=== PATIENT | female | born 1955 | race Two or more races ===

== ENCOUNTER 2022-05-15 11:30 | Emergency (ER) | payer OTHER ==
[~2022-05-15] VITALS: Ht 160 cm; Wt 63.6 kg
[2022-05-15] MEDS ORDERED: LABETALOL HCL 5 MG/ML 4ML SYRINGE IV ONE (11:45)
[2022-05-15] MEDS ORDERED: METOPROLOL TARTRATE 25 MG TAB PO ONE (12:00)
[2022-05-15 12:05] LABS: Basophils # (auto) 0.1 10 ^3/uL (0-0.2); Basophils % (auto) 0.8 % (0.0-2.0); Eosinophils # (auto) 0.1 10 ^3/uL (0-0.8); Eosinophils % (auto) 1.1 % (0.0-7.0); Hematocrit 44.3 % (36.0-46.0); Hemoglobin 15.3 g/dL (12.2-16.2); Lymphocytes # (auto) 1.5 10 ^3/uL (0.4-5.4); Lymphocytes % (auto) 15.3 % (10.0-50.0); Mean Corpuscular Hemoglobin 30.4 pg (28.0-32.0); Mean Corpuscular Hgb Conc. 34.5 g/dL (32.0-36.0); Monocytes # (auto) 0.6 10 ^3/uL (0-1.3); Monocytes % (auto) 6.4 % (0.0-12.0); Neutrophils # (auto) 7.4 10 ^3/uL (1.6-8.6); Neutrophils % (auto) 76.4 % (37.0-80.0); Nucleated Red Blood Cells % 0.7 %; Red Blood Cells 5.03 10^6/uL (4.0-5.20); Red Cell Distribution Width 12.8 % (11.8-14.3); White Blood Cell 9.7 10^3/uL (4.4-10.8)
[2022-05-15 12:24] LABS: Albumin 4.1 g/dL (3.4-5.0); Calcium 9.1 mg/dL (8.5-10.1)
[2022-05-15 12:28] LABS: BUN/Creatinine Ratio 10.7; Bilirubin, Total 0.6 mg/dL (0.2-1.0); Total Protein 7.2 g/dL (6.4-8.2)
[2022-05-15 23:18] VITALS: BP 173/59
== END 2022-05-15 23:26 | disposition home or self-care (01) ==
LOC: ER 11:30 → EDBD 11:30 → ER 23:25
DX: I16.9 Hypertensive crisis, unspecified (principal); I10 Essential (primary) hypertension
CPT/HCPCS: 36415; 70450; 71045; 80053; 84484; 85025; 96374; 99284; J3490

== ENCOUNTER 2022-05-18 17:18 | Emergency (ER) | payer OTHER ==
[~2022-05-18] VITALS: Ht 154.9 cm; Wt 70.0 kg
[2022-05-18] MEDS ORDERED: LABETALOL HCL 5 MG/ML 4ML SYRINGE IV ONE (18:00)
[2022-05-18 18:40] LABS: Basophils # (auto) 0.1 10 ^3/uL (0-0.2); Basophils % (auto) 0.5 % (0.0-2.0); Eosinophils # (auto) 0.1 10 ^3/uL (0-0.8); Eosinophils % (auto) 1.5 % (0.0-7.0); Hematocrit 43.7 % (36.0-46.0); Hemoglobin 15.3 g/dL (12.2-16.2); Lymphocytes # (auto) 1.7 10 ^3/uL (0.4-5.4); Lymphocytes % (auto) 17.4 % (10.0-50.0); Mean Corpuscular Hgb Conc. 34.9 g/dL (32.0-36.0); Mean Corpuscular Volume 88.8 fL (80.0-100.0); Monocytes # (auto) 0.5 10 ^3/uL (0-1.3); Monocytes % (auto) 5.1 % (0.0-12.0); Neutrophils # (auto) 7.3 10 ^3/uL (1.6-8.6); Neutrophils % (auto) 75.5 % (37.0-80.0); Red Blood Cells 4.92 10^6/uL (4.0-5.20); Red Cell Distribution Width 12.7 % (11.8-14.3); White Blood Cell 9.6 10^3/uL (4.4-10.8)
[2022-05-18 19:00] LABS: Albumin 4.2 g/dL (3.4-5.0); Calcium 9.4 mg/dL (8.5-10.1); Potassium 4.1 mmol/L (3.5-5.1)
[2022-05-18 19:05] LABS: BUN/Creatinine Ratio 14.5; Bilirubin, Total 0.6 mg/dL (0.2-1.0); Total Protein 7.6 g/dL (6.4-8.2)
[2022-05-18] MEDS ORDERED: NITROGLYCERIN 0.4 MG SL TAB SL ONE (19:45)
[2022-05-18] MEDS ORDERED: amLODIPine BESYLATE 5 MG TAB PO ONE (19:45)
[2022-05-18] MEDS ORDERED: AML5T PO (21:17)
[2022-05-18] MEDS ORDERED: LOSA-39 PO (22:16)
[2022-05-19 00:07] VITALS: BP 161/74
== END 2022-05-19 00:09 | disposition home or self-care (01) ==
LOC: ER 17:18
DX: I16.9 Hypertensive crisis, unspecified (principal); Z79.899 Other long term (current) drug therapy
CPT/HCPCS: 36415; 71045; 80053; 84484; 85025; 93005

== ENCOUNTER 2024-10-15 09:42 | Emergency (ER) | payer OTHER ==
[~2024-10-15] VITALS: Ht 165.1 cm; Wt 71.3 kg
[~2024-10-15 09:42] MED LIST: B-COCAP34 OR; HYDR25TA5 PO; LEVO50TA7 PO; LOSA-534 PO; PROG200C21 PO
[2024-10-15] MEDS ORDERED: HYDR25SU21 PR (10:36)
[2024-10-15] MEDS ORDERED: NAPR-746 PO (10:36)
[2024-10-15] MEDS ORDERED: DOCU-94 PO (10:36)
--- NOTE | 2024-10-15 10:36 | ED.PDOC ---
History of Present Illness HPI Comments A 69 YEAR OLD FEMALE PRESENTS TO THE ED WITH COMPLAINT OF RECTAL PAIN DUE TO HEMORRHOIDS. PATIENT STATES SHE HAS A HISTORY OF HEMORRHOIDS FOR SEVERAL YEARS AND NOTES THEY HAVE BEEN WORSE AND HAS HAD RECTAL PAIN A RESULT FOR THE PAST 3 DAYS. PATIENT DENIES FEVER, CHILLS, SHORTNESS OF BREATH, CHEST PAIN, ABD OMINAL PAIN, NAUSEA, VOMITING, HEADACHE, OR OTHER COMPLAINTS. NO OTHER SYMPTOMS OR MODIFYING FACTORS AT THIS TIME. PATIENT IS ALERT, ORIENTED X 4, AND HAS STEADY GAIT. Chief Complaint: Rectal Pain Time Seen by MD: 09:58 Primary Care Provider: None Reviewed Notes: Nurses Notes, Medications, Allergies Allergies: Coded Allergies: NO KNOWN ALLERGIES (Unverified , 05/15/22) Home Meds Active Scripts Naproxen (Naproxen) 500 Mg Tab, 500 MG PO BID, #30 TAB Prov:AMBER MONTANA 10/15/24 Docusate Sodium (Colace) 100 Mg Cap, 1 CAP PO BID, #30 CAP Prov:AMBER MONTANA 10/15/24 Hydrocortisone Acetate (Anusol-Hc) 25 Mg Sup, 1 SUPP IA BID, #20 SUPP 1 Refill Prov:AMBER MONTANA 10/15/24 Reported Medications Levothyroxine Sodium (Levothyroxine Sodium) 50 Mcg Tab, 50 MCG PO QAM for 30 Days, MCG 07/01/23 B-Complex Vitamins (B Complex) Cap, 1 OR DAILY, CAP 06/26/23 Progesterone Micronized (PROGESTERONE) 200 Mg Cap, 200 MG PO DAILY, CAP 06/26/23 Hctz (Hydrochlorothiazide) 25 Mg Tab, 25 MG PO DAILY, TAB 06/26/23 Losartan Potassium (Losartan Potassium) 50 Mg Tab, 50 MG PO DAILY, TAB 06/26/23 Information Source: Patient Mode of Arrival: Ambulatory Severity: Moderate Timing: Days Duration: Since onset, Days Prehospital treatment: None Medication Refill: For: Other (RECTAL PAIN DUE TO HEMORRHOIDS) Past Medical History PAST MEDICAL HISTORY: HTN Past Medical History (Other): HEMORRHOIDS Surgical History: Denies all surgeries DISHWASHER BUSSER History: Denies all DISHWASHER BUSSER Hx Family History Family History: Reviewed,noncontributory to illness Social History Smoker: Non-Smoker Alcohol: Denies ETOH Use Drugs: Denies Drug Use Lives In: Home Constitutional: denies: chills, diaphoresis, fatigue, fever, malaise, sweats, weakness, others EENTM: denies: blurred vision, double vision, ear bleeding, ear discharge, ear drainage, ear pain, ear ringing, eye pain, eye redness, hearing loss, mouth pain, mouth swelling, nasal discharge, nose bleeding, nose congestion, nose pain, photophobia, tearing, throat pain, throat swelling, voice changes, others Respiratory: denies: cough, hemoptysis, orthopnea, SOB at rest, shortness of breath, SOB with excertion, stridor, wheezing, others Cardiovascular: denies: chest pain, dizzy spells, diaphoresis, Dyspnea on exertion, edema, irregular heart beat, left arm pain, lightheadedness, palpitat ions, PND, syncope, others Gastrointestinal: reports: rectal pain; denies: abdomen distended, abdominal pain, blood streaked bowels, constipated, diarrhea, dysphagia, difficulty swallowing, hematemesis, melena, nausea, poor appetite, poor fluid intake, rectal bleeding, vomiting, others Genitourinary: denies: abnormal vagina bleeding, burning, dyspareunia, dysuria, flank pain, frequency, hematuria, incontinence, pain, , vagina discharge , urgency, others Neurological: denies: dizziness, fainting, headache, left sided numbness, left sided weakness, numbness, paresthesia, pre-existing deficit, right sided numbness, right sided weakness, seizure, speech problems, tingling, tremors, weakness, others Musculoskeletal: denies: back pain, gout, joint pain, joint swelling, muscle pain, muscle stiffness, neck pain, others Integumetry: reports: lesions (HEMORRHOIDS ); denies: bruises, change in color, change in hair/nails, dryness, laceration, lumps, rash, wounds, others Allergic/Immunocompromised: denies: Difficulty Healing, Frequent Infections, Hives, Itching, others Hematologic/Lymphatic: denies: anemia, blood clots, easy bleeding, easy bruising, swollen glands, others Endocrine: denies: excessive hunger, excessive sweating, excessive thirst, excessive urination, flushing, intolerance to cold, intolerance to heat, unexplained weight gain, unexplained weight loss, others Psychiatric: denies: anxiety, bipolar disorder, depression, hopeless, panic disorder, schizophrenia, sleepless, suicidal, others All Other Systems: Reviewed and Negative Physical Exam General Appearance: No Apparent Distress, Normal HEENT: Normal ENT Inspection, PERRL/EOMI, Pharynx Normal, TMs Normal Neck: Full Range of Motion, Non-Tender, Normal, Normal Inspection Respiratory: Chest Non-Tender, Lungs Clear, No Accessory Muscle Use, No Respiratory Distress, Normal Breath Sounds Cardiovascular: No Edema, No JVD, No Murmur, No Gallop, Normal Peripheral Pulses, Regular Rate/Rhythm Breast Exam: Deferred Gastrointestinal: No Organomegaly, Non Tender, No Pulsatile Mass, Normal Bowel Sounds, Soft Genitalia: Deferred Pelvic: Deferred Rectal: Heme negative stool, Hemorrhoids (3 EXTERNAL HEMORRHOID, NO BLEEDING AND BLOOD CLOTS. ), Normal rectal tone Extremities: No calf tenderness, Normal capillary refill, Normal inspection, Normal range of motion, Non-tender, No pedal edema Musculoskeletal : Apperance: Normal Neurologic: Alert, fruit picker II-XII nml as Tested, No Motor Deficits, Normal Affect, Normal Mood, No Sensory Deficits Cerebellar Function: Normal Reflexes: Normal Skin: Dry, Normal Color, Warm Peripheral Pulses: 2+ carotid (R), 2+ carotid (L) Lymphatic: No Adenopathy Was a procedure done? Was a procedure done?: No Differential Dx Considerations may include: EXTERNAL/INTERNAL HEMORRHOIDS, RECTAL PAIN, CONSTIPATION, ANAL FISSURE X-Ray, Labs, Meds, VS Vital Signs Date Time Temp Pulse Resp B/P (MAP) Pulse Ox O2 Delivery O2 Flow Rate FiO2 10/15/24 10:41 98.4 86 20 162/84 (110) 97 98.4 10/15/24 10:40 86 20 97 Room Air 10/15/24 09:59 98.4 88 18 162/83 (109) 97 98.4 X-Ray, Labs, Meds, VS Comment EXTERNAL MEDICAL RECORDS REVIEWED: [NONE] INDEPENDENT HISTORIANS: [NONE] SOCIAL DETERMINANTS OF HEALTH: [NONE] LABS ORDERED: NONE REVIEWED AND INTERPRETED RESULTS: NONE IMAGING ORDERED: NONE TREATMENTS ORDERED: NONE PROCEDURES PERFORMED: NONE CRITICAL CARE TIME: NONE I HAVE DISCUSSED THE PATIENT WITH THE ATTENDING PHYSICIAN DR. MARTINEZ AND HE AGREES WITH THE PATIENT'S PLAN OF CARE AND DISPOSITION. BASED ON HISTORY OF PRESENT ILLNESS, AND PHYSICAL EXAM, PATIENT WILL BE DISCHARGED HOME. DISCUSSED PLAN FOR DISCHARGE HOME WITH RX [COLACE AND ANUSOL CREAM]. MEDICATION WARNINGS GIVEN. SHARED DECISION MAKING: PATIENT INSTRUCTED TO FOLLOW UP WITH PRIMARY CARE PROVIDER IN 1-2 DAYS FOR RE-EVALUATION OF SYMPTOMS. PATIENT VERBALIZES UNDERSTANDING TO RETURN TO ED FOR NEW OR WORSENING SYMPTOMS OR IF FOLLOW UP WITH PCP CANNOT BE OBTAINED. PATIENT FEELS COMFORTABLE GOING HOME AT THIS TIME. ALL QUESTIONS ADDRESSED AT TIME OF DISCHARGE. Time of 1ST Reevaluation: 11:00 Reevaluation 1ST: Improved Patient Education/Counseling: Diagnosis, Treatment, Need For Follow Up Family Education/Counseling: Diagnosis, Treatment, Need For Follow Up Medical Screening: No EMC Exist At This Time SEPSIS Sepsis Screen Date sepsis recognized/suspect: Oct 15, 2024 Time Sepsis recognized/suspect: 954 Recent Procedure: No On Antibiotic Therapy: No Respiratory Rate >20: No Heart Rate >90: No Temp<36 C (96.8 F) or >38.3 C: No SBP <90 or MAP <65 mmHG: No New Acute Mental Status Change: No Is the patient on CPAP, BIPAP,: No Vital Signs Date Time Temp Pulse Resp B/P (MAP) Pulse Ox O2 Delivery O2 Flow Rate FiO2 10/15/24 10:41 98.4 86 20 162/84 (110) 97 98.4 10/15/24 10:40 86 20 97 Room Air 10/15/24 09:59 98.4 88 18 162/83 (109) 97 98.4 Departure 1 Departure Time of Disposition: 11:00 Impression: Primary Impression: External hemorrhoids Disposition: HOME / SELF CARE / HOMELESS Condition: Stable Additional Instructions: FOLLOW UP WITH PCP IN 1-2 DAYS, TAKE MEDICATIONS PRESCRIBED. RETURN TO ED FOR ANY NEW OR WORSENING SYMPTOMS. e-Prescriptions Naproxen (Naproxen) 500 Mg Tab 500 MG PO BID, #30 TAB Prov: AMBER MONTANA 10/15/24 Docusate Sodium (Colace) 100 Mg Cap 1 CAP PO BID, #30 CAP Prov: AMBER MONTANA 10/15/24 Hydrocortisone Acetate (Anusol-Hc) 25 Mg Sup 1 SUPP IA BID, #20 SUPP 1 Refill Prov: AMBER MONTANA 10/15/24 Discharged With: Self Critical Care Note Critical Care Time?: No Stability Stability form required: No I personally scribed for AMBER MONTANA ([email or web address]) on 10/15/24 at 10:36. Electronically submitted by Canelo Yancey ([email or web address]). AMBER MONTANA Oct 15, 2024 10:36
[2024-10-15 10:41] VITALS: BP 162/84; PULSE 86; RESP 20; TEMP 98.4; O2SAT 97
== END 2024-10-15 10:44 | disposition home or self-care (01) ==
LOC: ER 09:42
DX: K64.4 Residual hemorrhoidal skin tags (principal); I10 Essential (primary) hypertension; Z87.19 Personal history of other diseases of the digestive system; Z79.899 Other long term (current) drug therapy; Z79.890 Hormone replacement therapy

== ENCOUNTER 2024-10-23 10:52 | Emergency (ER) | payer OTHER ==
[~2024-10-23 10:52] MED LIST changes: +DOCU-94 PO; +HYDR25SU21 PR; +NAPR-746 PO
[2024-10-23 11:07] VITALS: BP 165/72; PULSE 89; RESP 18; TEMP 97.8; O2SAT 97
--- NOTE | 2024-10-23 11:59 | ED.PDOC ---
GI ASSESSMENT HPI Comments 69F presents to the ER w/ prior Mhx of HTN, Hemorrhoids and the c/c of rectal pain. Pt reports on being here 8 days ago for similar symptoms and was given medication for which has not been working. Pt did schedule an appointment w/ a specialist which is on January 01. Pt came back into the ER due from stating that she came into the ER due from having more bowel movements w/ associated of rectal bleeding. Denies chills, fever, N/V/D, SOB, CP. Chief Complaint: Rectal Pain Time Seen by MD: 11:45 Primary Care Provider: None Reviewed Notes: Nurses Notes, B Operator Notes, Medications, Allergies Allergies: Coded Allergies: NO KNOWN ALLERGIES (Unverified , 05/15/22) Home Meds Active Scripts Naproxen (Naproxen) 500 Mg Tab, 500 MG PO BID, #30 TAB Prov:AMBER MONTANA 10/15/24 Docusate Sodium (Colace) 100 Mg Cap, 1 CAP PO BID, #30 CAP Prov:AMBER MONTANA 10/15/24 Hydrocortisone Acetate (Anusol-Hc) 25 Mg Sup, 1 SUPP OR BID, #20 SUPP 1 Refill Prov:AMBER MONTANA 10/15/24 Reported Medications Levothyroxine Sodium (Levothyroxine Sodium) 50 Mcg Tab, 50 MCG PO QAM for 30 Days, MCG 07/01/23 B-Complex Vitamins (B Complex) Cap, 1 OR DAILY, CAP 06/26/23 Progesterone Micronized (PROGESTERONE) 200 Mg Cap, 200 MG PO DAILY, CAP 06/26/23 Hctz (Hydrochlorothiazide) 25 Mg Tab, 25 MG PO DAILY, TAB 06/26/23 Losartan Potassium (Losartan Potassium) 50 Mg Tab, 50 MG PO DAILY, TAB 06/26/23 Information Source: Patient Mode of Arrival: Ambulatory Timing: Days Duration: Since onset, Days Prehospital treatment: None Quality: Aching Vomitus: None Stool: Hemorrhoids Severity: Moderate Recent: None Recent Hx of: None Pain Location: None Associated sign and symptoms: None Past Medical History PAST MEDICAL HISTORY: HTN Past Medical History (Other): Hemorrhoids Surgical History: Denies all surgeries ONLINE MERCHANDISING MANAGER History: Denies all ONLINE MERCHANDISING MANAGER Hx Family History Family History: Reviewed,noncontributory to illness, Unknown Social History Smoker: Non-Smoker Alcohol: Denies ETOH Use Drugs: Denies Drug Use Lives In: Home Constitutional: denies: chills, diaphoresis, fatigue, fever, malaise, sweats, weakness, others EENTM: denies: blurred vision, double vision, ear bleeding, ear discharge, ear drainage, ear pain, ear ringing, eye pain, eye redness, hearing loss, mouth pain, mouth swelling, nasal discharge, nose bleeding, nose congestion, nose pain, photophobia, tearing, throat pain, throat swelling, voice changes, others Respiratory: denies: cough, hemoptysis, orthopnea, SOB at rest, shortness of breath, SOB with excertion, stridor, wheezing, others Cardiovascular: denies: chest pain, dizzy spells, diaphoresis, Dyspnea on exertion, edema, irregular heart beat, left arm pain, lightheadedness, palpitations, PND, syncope, others Gastrointestinal: reports: rectal pain; denies: abdomen distended, abdominal pain, blood streaked bowels, constipated, diarrhea, dysphagia, difficulty swallowing, hematemesis, melena, nausea, poor appetite, poor fluid intake, rectal bleeding, vomiting, others Genitourinary: denies: abnormal vagina bleeding, burning, dyspareunia, dysuria, flank pain, frequency, hematuria, incontinence, pain, , vagina discharge, urgency, others Neurological: denies: dizziness, fainting, headache, left sided numbness, left sided weakness, numbness, paresthesia, pre-existing deficit, right sided num bness, right sided weakness, seizure, speech problems, tingling, tremors, weakness, others Musculoskeletal: denies: back pain, gout, joint pain, joint swelling, muscle pain, muscle stiffness, neck pain, others Integumetry: denies: bruises, change in color, change in hair/nails, dryness, laceration, lesions, lumps, rash, wounds, others Allergic/Immunocompromised: denies: Difficulty Healing, Frequent Infections, Hives, Itching, others Hematologic/Lymphatic: denies: anemia, blood clots, easy bleeding, easy bruising, swollen glands, others Endocrine: denies: excessive hunger, excessive sweating, excessive thirst, excessive urination, flushing, intolerance to cold, intolerance to heat, unexplained weight gain, unexplained weight loss, others Psychiatric: denies: anxiety, bipolar disorder, depression, hopeless, panic disorder, schizophrenia, sleepless, suicidal, others All Other Systems: Reviewed and Negative Physical Exam General Appearance: No Apparent Distress, Normal HEENT: Normal ENT Inspection, PERRL/EOMI, Pharynx Normal, TMs Normal Neck: Full Range of Motion, Non-Tender, Normal, Normal Inspection Respiratory: Chest Non-Tender, Lungs Clear, No Accessory Muscle Use, No Respiratory Distress, Normal Breath Sounds Cardiovascular: No Edema, No JVD, No Murmur, No Gallop, Normal Peripheral Pulses, Regular Rate/Rhythm Breast Exam: Deferred Gastrointestinal: No Organomegaly, Non Tender, No Pulsatile Mass, Normal Bowel Sounds, Soft Genitalia: Deferred Pelvic: Deferred Rectal: Hemorrhoids, Other (Mostly old hemorrhoid with a remnant of skin and no rectal bleeding at this time) Extremities: No calf tenderness, Normal capillary refill, Normal inspection, Normal range of motion, Non-tender, No pedal edema Musculoskeletal : Apperance: Normal Neurologic: Alert, development architect II-XII nml as Tested, No Motor Deficits, Normal Affect, Normal Mood, No Sensory Deficits Cerebellar Function: Normal Reflexes: Normal Skin: Dry, Normal Color, Warm Peripheral Pulses: 1+ carotid (R), 1+ carotid (L) Lymphatic: No Adenopathy Was a procedure done? Was a procedure done?: No GI differential Dx Differential Diagnosis: Gastroenteritis, GI hemorrhage, Inflammatory BD Other Differential Diagnosis Hemorrhoids X-Ray, Labs, Meds, VS Vital Signs Date Time Temp Pulse Resp B/P (MAP) Pulse Ox O2 Delivery O2 Flow Rate FiO2 10/23/24 11:07 97.8 89 18 165/72 (103) 97 97.8 X-Ray, Labs, Meds, VS Comment Course in the emergency department patient came in because of rectal pain Physical exam is normal the rectal examination shows mostly rectal remnant of old hemorrhoids At this time there is no bleeding but is possibility of rectal bleed the patient has an appointment to see the GI doctor Time of 1ST Reevaluation: 12:15 Reevaluation 1ST: Unchanged Time of 2ND Reevaluation: 12:17 Reevaluation 2ND: Improved Consultation: PCP, GI Patient Education/Counseling: Diagnosis, Treatment, Prognosis, Need For Follow Up Family Education/Counseling: Diagnosis, Treatment, Prognosis, Need For Follow Up, No Family Present SEPSIS Sepsis Screen Date sepsis recognized/suspect: Oct 23, 2024 Time Sepsis recognized/suspect: 1108 Recent Procedure: No On Antibiotic Therapy: No Respiratory Rate >20: No Heart Rate >90: No Temp<36 C (96.8 F) or >38.3 C: No SBP <90 or MAP <65 mmHG: No New Acute Mental Status Change: No Is the patient on CPAP, BIPAP,: No Vital Signs Date Time Temp Pulse Resp B/P (MAP) Pulse Ox O2 Delivery O2 Flow Rate FiO2 10/23/24 11:07 97.8 89 18 165/72 (103) 97 97.8 Departure 1 Departure Time of Disposition: 12:18 Impression: Primary Impression: External hemorrhoids Additional Impression: Rectal bleeding Disposition: 01 HOME / SELF CARE / HOMELESS Condition: Fair Additional Instructions: Follow up as directed with the GI doctor Discharged With: Self Critical Care Note Critical Care Time?: No Stability Stability form required: No Heart Score Heart Score: Heart Score Response (Comments) Value History N/A 0 EKG N/A 0 Age >65 2 Risk Factors 1 or 2 risk factors 1 Troponin N/A 0 Total 3 I personally scribed for LORNE LEE MD ([email or web address]) on 10/23/24 at 11:59. Electronically submitted by Allen Rivera ([email or web address]). LORNE LEE MD Oct 23, 2024 11:59
== END 2024-10-23 13:50 | disposition home or self-care (01) ==
LOC: ER 10:52
DX: K64.4 Residual hemorrhoidal skin tags (principal); K62.5 Hemorrhage of anus and rectum; I10 Essential (primary) hypertension; Z79.899 Other long term (current) drug therapy